=== PATIENT | male | born 1960 | race Caucasian/White ===

== ENCOUNTER → 2022-05-27 | Outpatient (CLI) | payer BC ==
--- NOTE | 2022-05-27 14:34 | XR ---
EXAMINATION TYPE: XR Hip Bilateral and AP pelvis DATE OF EXAM: 05/27/2022 COMPARISON: NONE HISTORY: Pain/arthritis TECHNIQUE: A single AP view of the pelvis is obtained. Two views of each hip are obtained. FINDINGS: Mild to moderate degenerative changes of the hip joints. No fracture or dislocation. Enthesophytes of the femoral greater trochanters. No definite acute pelvic bone fracture identified. Degenerative steffi nges of the lower lumbar spine. IMPRESSION: Degenerative changes of the hip joints as described above.
--- NOTE | 2022-05-27 14:37 | XR ---
EXAMINATION TYPE: XR cervical spine limited DATE OF EXAM: 05/27/2022 COMPARISON: NONE INDICATION: Pain/arthritis TECHNIQUE: 3 views of the cervical spine FINDINGS: Loss of normal cervical curvature, possibly positional. No significant anterolisthesis or retrolisthe sis. No definite vertebral body collapse or acute acute displaced fracture. Tiny opposing endplate osteophytosis and disc degeneration seen at C6-7 level. Suspected multilevel f acet osteoarthropathy at C4-5, C5-6 and C6-7 levels. Unremarkable prevertebral soft tissue. Unremarka ble atlantoaxial articulations. IMPRESSION: Degenerative changes of the cervical spine as described above. Further MRI assessment can be consider ed if clinically required.
--- NOTE | 2022-05-27 14:41 | XR ---
EXAMINATION TYPE: XR ankle complete RT DATE OF EXAM: 05/27/2022 COMPARISON: NONE INDICATION: Pain/arthritis TECHNIQUE: 3 views of the right ankle FINDINGS: Subtle irregularity of the base of the lateral malleolus which could be related to sequela of previou s trauma. No overlying soft tissue swelling. No other definite acute fracture line identified. Preserved ankle mortise with a smooth talar dome. Tiny osteophytosis of the ankle joint. Sharp inferi or calcaneal spur with posterior calcaneal enthesophytosis at the insertion of the Achilles tendon. No sizable ankle joint effusion. Small bony projection is seen arising from the superior aspect of th e talar head/neck. IMPRESSION: Degenerative changes and other findings as described above.
--- NOTE | 2022-05-27 14:44 | XR ---
EXAMINATION TYPE: XR elbow complete LT DATE OF EXAM: 05/27/2022 COMPARISON: NONE INDICATION: Pain/arthritis TECHNIQUE: 3 views of the left elbow FINDINGS: Tiny osteophytosis of the medial and lateral humeral epicondyles. Tiny osteophytosis of the radial he ad. Enthesophytosis of the olecranon with overlying soft tissue swelling, please correlate clinically. No sizable elbow joint effusion. No definite acute fracture line identified. IMPRESSION: Degenerative changes as described above.
--- NOTE | 2022-05-27 14:46 | XR ---
EXAMINATION TYPE: XR shoulder complete LT DATE OF EXAM: 05/27/2022 COMPARISON: NONE INDICATION: Pain/arthritis TECHNIQUE: 3 views of the left shoulder FINDINGS: Moderate degenerative changes of the acromioclavicular joint. Grossly unremarkable glenohumeral artic ulation. No humeral head dislocation or significant subluxation. No definite acute fracture line identified. Osteophytosis of the superior aspect of the acromion. No signs of rotator cuff calcific tendinitis. Rather maintained acromiohumeral distance. IMPRESSION: Degenerative changes as described above.
[2022-05-27 19:41] LABS: C Reactive Protein <0.30 mg/dL (0.00-0.80); Rheumatoid Factor, Qnt 11 IU/mL (0-15)
[2022-05-27 20:48] LABS: Cyclic Citrull Pep IgG Unit <0.5 U/mL; Cyclic Citrullinated Pep IgG NEGATIVE (NEGATIVE)
[2022-05-28 11:08] LABS: HLA B27 NEGATIVE
== END | disposition home or self-care (01) ==
LOC: LABWHC1 11:44
PROVIDERS: ATTEND Internal Medicine Rheumatology
DX: E11.9 Type 2 diabetes mellitus without complications (principal); M25.559 Pain in unspecified hip; M25.579 Pain in unspecified ankle and joints of unspecified foot; M25.512 Pain in left shoulder; M54.2 Cervicalgia; L40.9 Psoriasis, unspecified; Z72.0 Tobacco use
CPT/HCPCS: 36415; 72040; 73521; 83520; 85652; 86038; 86140; 86200; 86431; 86812

== ENCOUNTER 2022-07-08 07:40 | Emergency (ER) | payer BC ==
[2022-07-08 07:49] VITALS: TEMP 98
--- NOTE | 2022-07-08 08:34 | ED ---
General Adult HPI - General Chief complaint: Skin/Abscess/Foreign Body Stated complaint: bilat leg discoloration Time Seen by Provider: 07/08/22 07:57 Source: patient, family, RN notes reviewed Mode of arrival: ambulatory Limitations: no limitations - History of Present Illness Initial comments: Patient is a pleasant 62-year-old male presenting to emergency department with concerns with leg discoloration. Patient does have chronic leg discoloration f or years. Patient believes it is been somewhat worse over the past couple of weeks. just no emesis today. There is additional discoloration in the feet, similar to the legs which is somewhat new. Patient denies discomfort. No fever. Patient has been previously diagnosed with peripheral arterial disease. No calf pain or swelling. - Related Data Allergies Allergy/AdvReac Type Severity Reaction Status Date / Time acetaminophen [From Tylenol] Allergy Rash/Hives Verified 07/08/22 07:49 Review of Systems ROS Statement: Those systems with pertinent positive or pertinent negative responses have been documented in the HPI. ROS Other: All systems not noted in ROS Statement are negative. Constitutional: Denies: fever Eyes: Denies: eye pain ENT: Denies: ear pain Respiratory: Denies: cough, dyspnea Cardiovascular: Denies: chest pain Endocrine: Denies: fatigue Gastrointestinal: Denies: abdominal pain Genitourinary: Denies: dysuria Musculoskeletal: Denies: back pain Skin: Reports: as per HPI Past Medical History Past Medical History: Diabetes Mellitus History of Any Multi-Drug Resistant Organisms: None Reported Past Surgical History: No Surgical Hx Reported Past Psychological History: No Psychological Hx Reported Smoking Status: Current every day smoker Past Alcohol Use History: Rare Past Drug Use History: Marijuana General Exam Limitations: no limitations General appearance: alert, in no apparent distress Head exam: Present: normocephalic Eye exam: Present: normal appearance Neck exam: Present: normal inspection Respiratory exam: Present: normal lung sounds bilaterally Cardiovascular Exam: Present: regular rate, normal rhythm Expanded Peripheral pulses: 2+: Posterior Tibialis (R), Posterior Tibialis (L), Dorsalis Pedis (R), Dorsalis Pedis (L) Extremities exam: Present: normal capillary refill. Absent: pedal edema, calf tenderness Neurological exam: Present: alert Psychiatric exam: Present: normal affect, normal mood Skin exam: Present: other (Bilateral lower legs with brownish discoloration extending to the feet consistent with chronic lung discoloration. No erythema. No tenderness to palpation.) Course Vital Signs 07/08/22 07:45 Temperature 98 F Pulse Rate 82 Respiratory 18 Rate Blood Pressure 142/79 O2 Sat by Pulse 96 Oximetry Medical Decision Making - Medical Decision Making Patient reevaluated. Patient and family updated. - Lab Data Result diagrams: 07/08/22 08:49 07/08/22 08:49 Lab Results 07/08/22 07/08/22 Range/Units 08:49 08:49 WBC 9.0 (3.8-10.6) k/uL RBC 5.86 (4.30-5.90) m/uL Hgb 17.6 H (13.0-17.5) gm/dL Hct 50.7 (39.0-53.0) % MCV 86.5 (80.0-100.0) fL MCH 30.1 (25.0-35.0) pg MCHC 34.8 (31.0-37.0) g/dL RDW 12.7 (11.5-15.5) % Plt Count 155 (150-450) k/uL MPV 7.6 Neutrophils % 71 % Lymphocytes % 18 % Monocytes % 7 % Eosinophils % 3 % Basophils % 1 % Neutrophils # 6.4 (1.3-7.7) k/uL Lymphocytes # 1.6 (1.0-4.8) k/uL Monocytes # 0.6 (0-1.0) k/uL Eosinophils # 0.2 (0-0.7) k/uL Basophils # 0.1 (0-0.2) k/uL Sodium 137 (137-145) mmol/L Potassium 4.5 (3.5-5.1) mmol/L Chloride 104 (98-107) mmol/L Carbon Dioxide 21 L (22-30) mmol/L Anion Gap 12 mmol/L BUN 18 (9-20) mg/dL Creatinine 0.73 (0.66-1.25) mg/dL Est GFR (CKD-EPI)AfAm >90 (>60 ml/min/1.73 sqM) Est GFR (CKD-EPI)NonAf >90 (>60 ml/min/1.73 sqM) Glucose 223 H (74-99) mg/dL Calcium 8.7 (8.4-10.2) mg/dL Total Bilirubin 0.5 (0.2-1.3) mg/dL AST 30 (17-59) U/L ALT 29 (4-49) U/L Alkaline Phosphatase 100 (38-126) U/L Total Protein 6.8 (6.3-8.2) g/dL Albumin 4.3 (3.5-5.0) g/dL - Radiology Data Radiology results: report reviewed (Bilateral lower extremity ultrasound negative for DVT) Disposition Clinical Impression: Venous insufficiency Disposition: HOME SELF-CARE Condition: Stable Instructions (If sedation given, give patient instructions): Venous Insufficiency (DC) Additional Instructions: Please do follow-up with primary care physician in the next couple days for recheck, please also follow-up with vascular Dr., number provided. Return for redness, pain, color change, worsening or changing symptoms or other concerns. Consider daily walking routine. Consider compression socks. Is patient prescribed a controlled substance at d/c from ED?: No Referrals: Dat Geiger DO [Primary Care Provider] - 1-2 days Cece Jean DO [STAFF PHYSICIAN] - 1-2 days Time of Disposition: 11:08
[2022-07-08 09:28] LABS: Basophils # (A) 0.1 k/uL (0-0.2); Basophils % (A) 1 %; Eosinophils # (A) 0.2 k/uL (0-0.7); Eosinophils % (A) 3 %; HCT 50.7 % (39.0-53.0); HGB 17.6 gm/dL (13.0-17.5); Lymphocytes # (A) 1.6 k/uL (1.0-4.8); Lymphocytes % (A) 18 %; MCH 30.1 pg (25.0-35.0); MCHC 34.8 g/dL (31.0-37.0); MCV 86.5 fL (80.0-100.0); Mean Platelet Volume 7.6; Monocytes # (A) 0.6 k/uL (0-1.0); Monocytes % (A) 7 %; Neutrophils # (A) 6.4 k/uL (1.3-7.7); Neutrophils % (A) 71 %; Platelet Count 155 k/uL (150-450); RBC 5.86 m/uL (4.30-5.90); RDW 12.7 % (11.5-15.5)
[2022-07-08 09:59] LABS: ALT 29 U/L (4-49); AST 30 U/L (17-59); African American GFR (CKD) >90 (>60 ml/min/1.73 sqM); Albumin 4.3 g/dL (3.5-5.0); Alkaline Phosphatase 100 U/L (38-126); Anion Gap 12 mmol/L; Blood Urea Nitrogen 18 mg/dL (9-20); Calcium 8.7 mg/dL (8.4-10.2); Carbon Dioxide 21 mmol/L (22-30); Chloride 104 mmol/L (98-107); Glucose 223 mg/dL (74-99); Non-African American GFR(CKD) >90 (>60 ml/min/1.73 sqM); Potassium 4.5 mmol/L (3.5-5.1); Sodium 137 mmol/L (137-145); Total Bilirubin 0.5 mg/dL (0.2-1.3); Total Protein 6.8 g/dL (6.3-8.2)
--- NOTE | 2022-07-08 10:30 | US ---
EXAMINATION TYPE: US venous doppler duplex LE DATE OF EXAM: 07/08/2022 10:09 AM COMPARISON: NONE CLINICAL HISTORY: discoloration. Bilateral lower extremity increasing discoloration leading into foot SIDE PERFORMED: Bilateral TECHNIQUE: The lower extremity deep venous system is examined utilizing real time linear array sonog jeniffer with graded compression, doppler sonography and color-flow sonography. VESSELS IMAGED: Common Femoral Vein Deep Femoral Vein Greater Saphenous Vein * Femoral Vein Popliteal Vein Small Saphenous Vein * Proximal Calf Veins (* superficial vessels) Right Leg: Negative for DVT Left Leg: Negative for DVT Grayscale, color doppler, spectral doppler imaging performed of the deep veins of the bilateral lower extremities. There is normal flow, compressibility, vascular waveforms. IMPRESSION: No ultrasound evidence for acute DVT in either lower extremity.
[2022-07-08 11:49] VITALS: BP 123/63; PULSE 84; RESP 17
[2022-07-08 16:18] LABS: % Iron Saturation 24.93 (15.00-50.00); Iron 83 ug/dL (65-175); Total Iron Binding Capacity 335 ug/dL (228-460)
== END 2022-07-08 11:49 | disposition home or self-care (01) ==
LOC: EC 07:40
DX: I87.2 Venous insufficiency (chronic) (peripheral) (principal); E11.9 Type 2 diabetes mellitus without complications; F17.200 Nicotine dependence, unspecified, uncomplicated; F12.90 Cannabis use, unspecified, uncomplicated; Z88.6 Allergy status to analgesic agent
CPT/HCPCS: 36415; 80053; 83540; 83550; 85025; 93970; 99283